=== PATIENT | female | born 2000 | race Two or more races ===

== ENCOUNTER 2021-01-18 10:52 | Emergency (ER) | payer SELFPAY ==
--- NOTE | 2021-01-18 11:08 | EDM.PDOC ---
ED HPI GENERAL MEDICAL PROBLEM - General Chief Complaint: Abdominal Pain Stated Complaint: VOMITTING,DIARRHEA,ABDOMINAL PAIN Time Seen by Provider: 01/18/21 11:02 Source of Information: Reports: Patient History Limitations: Reports: No Limitations - History of Present Illness INITIAL COMMENTS - FREE TEXT/NARRATIVE: HISTORY AND PHYSICAL: History of present illness: Patient is a 27-year-old Albanian-speaking female that presents with complaints of headache, sore throat, nausea vomiting, diarrhea, congestion, chills, dysuria, generalized abdominal pain and a subjective fever for the past 7 days. All information obtained via security installer tablet. The patient states that she has been unable to eat very well and has been taking Tylenol and Motrin for her discomfort. The patient states that she has never had this previously. She does not appreciate any modifiers. The patient states she generally feels bad. She has pain throughout her entire body. Patient denies any change in vision, syncope or near syncope. Denies any chest pain, back pain, or shortness of breath. Has not noted any blood in urine or stool. Patient has been eating and drinking appropriately. The patient has never had a COVID-19, or been tested for COVID-19. The patient has not been vaccinated for COVID-19. The patient is unemployed and is unsure of exposure to COVID-19. The patient states that she does not employ any social or preventative practices such as mask wearing. Review of systems: As per history of present illness and below otherwise all systems reviewed and negative. Past medical history: As per history of present illness and as reviewed below otherwise noncontributory. Surgical history: As per history of present illness and as reviewed below otherwise noncontribut ory. Social history: See social history for further information Family history: As per history of present illness and as reviewed below otherwise noncontributory. Physical exam: General: Well developed and well nourished. Alert and orientated x 3. Nontoxic in appearance and in no acute distress. Vital signs are stable and have been reviewed by me. Nursing notes were reviewed. HEENT: Atraumatic, normocephalic, pupils equal and reactive bilaterally, negative for conjunctival pallor or scleral icterus, mucous membranes moist, TMs normal bilaterally, throat clear, neck supple, nontender, trachea midline. Left posterior #17 tooth gingiva edematous and swollen. No drooling or trismus noted. No meningeal signs. No hot potato voice noted. Lungs: Clear to auscultation bilaterally. No wheezes, rales, or rhonchi. Chest nontender. Normal work of breathing, no accessory muscles used. Heart: S1S2, regular rate and rhythm without overt murmur, gallops, or rubs. No JVD. No peripheral edema Abdomen: Soft, nondistended, generalized tenderness. Normoactive bowel sounds. Negative for masses or costovertebral tenderness. Skin: Intact, warm, dry. No lesions or rashes noted. Hematologic: No petechiae or purpra. Mucosa appropriate color and normal nail bed color and refill. Extremities: Atraumatic, moves all extremities per self without difficulty or deficits, negative for cords or calf pain. Neurovascular unremarkable. Neuro: Awake, alert, oriented. Cranial nerves II through XII unremarkable. Cerebellum unremarkable. Motor and sensory unremarkable throughout. Exam nonfocal. Psychiatric: Mood and affect are appropriate. Normal thought process. Answering questions appropriately. Notes: *This patient was seen and evaluated during the 2019 SARS-CoV-2 novel coronavirus pandemic period. Community viral transmission is ongoing at time of this encounter and the emergency department is operating under pandemic response procedures. As stated above the patient is a 20-year-old female who presents to the emergency room with complaints of headache, sore throat, nausea vomiting, diarrhea, congestion, chills, dysuria, generalized abdominal pain and a subjective fever for the past 7 days. industrial chemicals supervisor tablet was utilized for all information obtained, exam, and plan of treatment. The patient's exam is benign except for some generalized abdominal tenderness. As the patient is unsure of her COVID-19 status I will obtain a COVID-19 swab. I will order blood work, and a chest x-ray. A urinalysis is ordered due to dysuria. I will treat the patient with IV fluids and her nausea with Zofran 4 mg IV. I will treat her discomfort with Toradol 30 mg IV. The patient is agreeable with this plan. The patient CBC is unremarkable. The patient's CMP is remarkable for a calcium of six 8.4, AST 41, and ALT 74. The patient's urinalysis was unremarkable. The patient's Covid 19 swab is positive. As the patient's BMI is 34.5 she qualifies for REGEN-COV. I provided the patient with a Albanian copy of the patient's, parents, caregivers REGEN-COV fax sheet and she consented to the infusion. The information has been faxed to the outpatient clinic and they will call her with a infusion time. The patient is agreeable with this discharge plan. I have reviewed Covid symptomatic treatment with the patient. I have given her detailed instructions on when to return to the clinic. I will also prescribe clindamycin 300 mg every 8 hours for 7 days for her dental caries. This was all accomplished with a industrial chemicals supervisor tablet. I have talked with the patient about today's findings, in addition to providing specific details for plan of care. Reassessment at the time of disposition demonstrates that the patient is in no acute distress. The patient is stable for discharge, counseling was provided and we discussed in great detail signs and symptoms that would prompt them to return to the Emergency Department. Medication, follow up and supportive care measures were reviewed and discussed. Voices understanding and is agreeable to plan of care. Denies any further questions or concerns at this time. Diagnostics: CBC, CMP, CXR, COVID-19 swab, urinalysis Therapeutics: Fluids, Toradol 30 mg IV, Zofran 4 mg IV Prescription:REGEN-COV infusion, mitomycin 300 mg every 8 hours x7 days for dental Impression: COVID-19, Dental caries Plan: 1. You were evaluated today on an emergent basis. Your plaints of headache, sore throat, nausea, vomiting, diarrhea, congestion, chills, and full urination were evaluated with blood work which was essentially normal, a chest x-ray which was normal, and a COVID-19 swab which was positive for Covid. Using the industrial chemicals supervisor we reviewed the criteria for REGEN-COV. You received a [place]ian copy of the patient fax sheet and gave your consent. The clinic will be calling you for an appointment. 2. Your COVID-19 screening is positive. That means you do have the coronavirus and you are considered contagious. Your vital signs and oxygen saturation are well enough that you were able to monitor your symptoms at home. Continue to monitor for trouble breathing, new confusion or inability to arouse, bluish lips or face or any of the other symptoms we discussed -if this occurs please return to the emergency room. 3. Please self quarantine until cleared by [facility]. Inform any persons that you have been in contact with since you started becoming symptomatic that you have tested positive; they should be made aware and take the appropriate steps as needed. 4. You can take NyQuil during the evening to help get a restful night sleep. May alternate Tylenol and ibuprofen as needed for pain and fever management. 5. The the [facility] department will be calling you and following up with you. The [place] [facility] [employer] Hotline phone number , They are open Wednesday - Wednesday 7am - 7pm. Follow up with your primary care provider for re-evaluation and re-testing after the 10 day quarantine and discuss when you should be seen. Definitive disposition and diagnosis as appropriate pending reevaluation and review of above. abdomen Pain Score (Numeric/FACES): 7 - Related Data Allergies Allergy/AdvReac Type Severity Reaction Status Date / Time Penicillins Allergy Airway Verified 01/18/21 11:10 Tightness Home Meds: Home Meds Clindamycin HCl 300 mg PO Q8HR 7 Days #21 capsule 01/18/21 [Rx] ED ROS GENERAL - Review of Systems Review Of Systems: Comprehensive ROS is negative, except as noted in HPI. ED EXAM, GI/ABD - Physical Exam Exam: See Below (See dictation) Course - Vital Signs Last Recorded V/S: Last Vital Signs Temp 97.1 F 01/18/21 11:04 Pulse 65 01/18/21 14:22 Resp 18 01/18/21 14:22 BP 116/83 01/18/21 14:30 Pulse Ox 99 01/18/21 14:22 - Orders/Labs/Meds Labs: Laboratory Tests 01/18/21 01/18/21 01/18/21 Range/Units 11:33 11:33 11:33 WBC 4.93 (4.0-11.0) K/uL RBC 5.09 (4.30-5.90) M/uL Hgb 14.7 (12.0-16.0) g/dL Hct 43.0 (36.0-46.0) % MCV 84.5 (80.0-98.0) fL MCH 28.9 (27.0-32.0) pg MCHC 34.2 (31.0-37.0) g/dL RDW Std Deviation 41.2 (28.0-62.0) fl RDW Coeff of Zac 13 (11.0-15.0) % Plt Count 201 (150-400) K/uL MPV 11.70 (7.40-12.00) fL Neut % (Auto) 37.2 L (48.0-80.0) % Lymph % (Auto) 52.1 H (16.0-40.0) % [place] % (Auto) 10.5 (0.0-15.0) % Eos % (Auto) 0.0 (0.0-7.0) % Baso % (Auto) 0.2 (0.0-1.5) % Neut # (Auto) 1.8 (1.4-5.7) K/uL Lymph # (Auto) 2.6 H (0.6-2.4) K/uL [place] # (Auto) 0.5 (0.0-0.8) K/uL Eos # (Auto) 0.0 (0.0-0.7) K/uL Baso # (Auto) 0.0 (0.0-0.1) K/uL Nucleated RBC % 0.0 /100WBC Nucleated RBCs # 0 K/uL Sodium 139 (136-145) mmol/L Potassium 3.8 (3.5-5.1) mmol/L Chloride 102 (98-107) mmol/L Carbon Dioxide 25.1 (21.0-32.0) mmol/L BUN 7 (7.0-18.0) mg/dL Creatinine 0.8 (0.6-1.0) mg/dL Est Cr Clr Drug Dosing 103.26 mL/min Estimated GFR (MDRD) > 60.0 ml/min Glucose 85 (74-106) mg/dL Calcium 8.4 L (8.5-10.1) mg/dL Total Bilirubin 0.5 (0.2-1.0) mg/dL AST 41 H (15-37) IU/L ALT 74 H (14-63) IU/L Alkaline Phosphatase 71 (46-116) U/L Total Protein 7.6 (6.4-8.2) g/dL Albumin 3.9 (3.4-5.0) g/dL Globulin 3.7 (2.6-4.0) g/dL Albumin/Globulin Ratio 1.1 (0.9-1.6) Urine Color Urine Appearance Urine pH (5.0-8.0) Ur Specific [place] (1.001-1.035) Urine Protein (NEGATIVE) mg/dL Urine Glucose (UA) (NEGATIVE) mg/dL Urine Ketones (NEGATIVE) mg/dL Urine Occult Blood (NEGATIVE) Urine Nitrite (NEGATIVE) Urine Bilirubin (NEGATIVE) Urine Ictotest Urine Urobilinogen (<2.0) EU/dL Ur Leukocyte Esterase (NEGATIVE) SARS-CoV-2 RNA (GORGE) POSITIVE H (NEGATIVE) 01/18/21 Range/Units 13:26 WBC (4.0-11.0) K/uL RBC (4.30-5.90) M/uL Hgb (12.0-16.0) g/dL Hct (36.0-46.0) % MCV (80.0-98.0) fL MCH (27.0-32.0) pg MCHC (31.0-37.0) g/dL RDW Std Deviation (28.0-62.0) fl RDW Coeff of Zac (11.0-15.0) % Plt Count (150-400) K/uL MPV (7.40-12.00) fL Neut % (Auto) (48.0-80.0) % Lymph % (Auto) (16.0-40.0) % [place] % (Auto) (0.0-15.0) % Eos % (Auto) (0.0-7.0) % Baso % (Auto) (0.0-1.5) % Neut # (Auto) (1.4-5.7) K/uL Lymph # (Auto) (0.6-2.4) K/uL [place] # (Auto) (0.0-0.8) K/uL Eos # (Auto) (0.0-0.7) K/uL Baso # (Auto) (0.0-0.1) K/uL Nucleated RBC % /100WBC Nucleated RBCs # K/uL Sodium (136-145) mmol/L Potassium (3.5-5.1) mmol/L Chloride (98-107) mmol/L Carbon Dioxide (21.0-32.0) mmol/L BUN (7.0-18.0) mg/dL Creatinine (0.6-1.0) mg/dL Est Cr Clr Drug Dosing mL/min Estimated GFR (MDRD) ml/min Glucose (74-106) mg/dL Calcium (8.5-10.1) mg/dL Total Bilirubin (0.2-1.0) mg/dL AST (15-37) IU/L ALT (14-63) IU/L Alkaline Phosphatase (46-116) U/L Total Protein (6.4-8.2) g/dL Albumin (3.4-5.0) g/dL Globulin (2.6-4.0) g/dL Albumin/Globulin Ratio (0.9-1.6) Urine Color YELLOW Urine Appearance SLT CLOUDY Urine pH 6.0 (5.0-8.0) Ur Specific [place] 1.025 (1.001-1.035) Urine Protein NEGATIVE (NEGATIVE) mg/dL Urine Glucose (UA) NEGATIVE (NEGATIVE) mg/dL Urine Ketones 40 H (NEGATIVE) mg/dL Urine Occult Blood NEGATIVE (NEGATIVE) Urine Nitrite NEGATIVE (NEGATIVE) Urine Bilirubin SMALL H (NEGATIVE) Urine Ictotest NEGATIVE Urine Urobilinogen 1.0 (<2.0) EU/dL Ur Leukocyte Esterase NEGATIVE (NEGATIVE) SARS-CoV-2 RNA (GORGE) (NEGATIVE) Meds: Medications Discontinued Medications Generic Name Dose Route Start Last Admin Trade Name Freq PRN Reason Stop Dose Admin Sodium Chloride 1,000 mls @ 999 mls/hr 01/18/21 11:25 01/18/21 11:34 Normal Saline IV 01/18/21 12:25 999 mls/hr .BOLUS ONE Administration Ketorolac Tromethamine 30 mg 01/18/21 11:25 01/18/21 11:35 Ketorolac 30 Mg/Ml Sdv IVPUSH 01/18/21 11:26 30 mg ONETIME ONE Administration Ondansetron HCl 4 mg 01/18/21 11:25 01/18/21 11:35 Ondansetron 4 Mg/2 Ml Sdv IVPUSH 01/18/21 11:26 4 mg ONETIME ONE Administration Sodium Chloride 10 ml 01/18/21 11:23 01/18/21 11:35 Sodium Chloride 0.9% 10 Ml Syringe FLUSH 10 ml ASDIRECTED PRN Administration Keep Vein Open Sodium Chloride 2.5 ml 01/18/21 11:23 01/18/21 11:35 Sodium Chloride 0.9% 2.5 Ml Syringe FLUSH 2.5 ml ASDIRECTED PRN Administration Keep Vein Open Departure - Departure Time of Disposition: 14:16 Disposition: Home, Self-Care 01 Condition: Good Clinical Impression: COVID-19, Dental infection - Discharge Information *PRESCRIPTION DRUG MONITORING PROGRAM REVIEWED*: Not Applicable *COPY OF PRESCRIPTION DRUG MONITORING REPORT IN PATIENT RAZA: Not Applicable Prescriptions: Clindamycin HCl 300 mg PO Q8HR 7 Days #21 capsule Instructions: COVID-19 Vaccine Information, Dental Abscess, [id number] Referrals: PCP,None [Primary Care Provider] - Forms: ED Department Discharge Additional Instructions: Plan: 1. Usted fue evaluado hoy de forma emergente. Rosmery quejas de dolor de krystyna, dolor de garganta, nuseas, vmitos, diarrea, congestin, escalofros y miccin completa se evaluaron con anlisis de eufemia que ethan esencialmente normales, harry radiografa de trax que era normal y un hisopo de COVID-19 que era positivo para COVID-19. Utilizando el intrprete de espaol, revisamos los criterios para REGEN-COV. Recibi harry copia en espaol de la hoja de fax del paciente y des james consentimiento. La clnica lo llamar para programar harry joseline. 2. James prueba de COVID-19 es positiva. Eso significa que tiene el coronavirus y se le considera contagioso. Rosmery signos vitales y la saturacin de oxgeno estn lo suficientemente kim brianna para poder controlar rosmery sntomas en casa. Contine monitoreando si tiene problemas para respirar, nueva confusin o incapacidad para despertarse, labios o chula azulados o cualquiera de los otros sntomas que discutimos; si esto ocurre, regrese a la sherwin de emergencias. 3. Por favor, pngase en cuarentena hasta que lo apruebe el Departamento de [place] del Estado. Informe a todas las personas con las que sultana estado en contacto desde que comenz a tener sntomas de que sultana dado positivo en la prueba; deben ser informados y elis las medidas adecuadas segn sea necesario. 4. Puede elis NyQuil mallory la noche para ayudarlo a tener un sueo reparador. Puede alternar Tylenol e ibuprofeno segn sea necesario para controlar el dolor y la fiebre. 5. El departamento de zoie del estado lo llamar y se pondr en contacto con alpa. La lnea directa de [place] [facility], nmero de telfono , est abierta de lunes a viernes de 7 a. M. A 7 p. M. Katerina un seguimiento con james proveedor de atencin primaria para harry reevaluacin y harry nueva prueba despus de la cuarentena de 10 olivarez y discuta cundo debe ser atendido. La siguiente informacin se proporciona a los pacientes atendidos en el departamento de emergencias que estn siendo dados de goldie a james hogar. Esta informacin es para describir rosmery opciones para la atencin de seguimiento. Proporcionamos a todos los pacientes atendidos en nuestro departamento de emergencias harry derivacin de seguimiento. La necesidad de seguimiento, as brianna el momento y las circunstancias, varan segn los detalles de james visita al departamento de emergencias. Si no tiene un mdico de atencin primaria en el personal, le proporcionaremos harry referencia. Siempre le recomendamos que se ponga en contacto con james mdico personal despus de harry visita al servicio de urgencias para informarle de las circunstancias de la visita y para hacer un seguimiento con l y / o la necesidad de cualquier derivacin a un especialista consultor. El departamento de emergencias tambin lo derivar a un especialista cuando sea apropiado. Esta remisin le asegura que tiene la oportunidad de recibir atencin de seguimiento con un especialista. Todas estas medidas se brendan en un esfuerzo por brindarle harry atencin ptima, que incluye james seguimiento. En todas las circunstancias, siempre lo alentamos a que se comunique con james mdico privado, quien sigue siendo un recurso para coordinar james atencin. Cuando llame para recibir atencin de seguimiento, informe al consultorio que suzanne seguimiento es de james visita reciente a la sherwin de emergencias. Si por alguna razn se le niega el seguimiento, comunquese con el Departamento de Emergencias del [facility] al y solicite hablar con la enfermera a cargo del departamento de emergencias. [facility] [address] [place] [id number] [facility] [address] [place] [id number] The following information is given to patients seen in the emergency department who are being discharged to home. This information is to outline your options for follow-up care. We provide all patients seen in our emergency department with a follow-up referral. The need for follow-up, as well as the timing and circumstances, are variable depending upon the specifics of your emergency department visit. If you don't have a primary care physician on staff, we will provide you with a referral. We always advise you to contact your personal physician following an emergency department visit to inform them of the circumstance of the visit and for follow-up with them and/or the need for any referrals to a consulting specialist. The emergency department will also refer you to a specialist when appropriate. This referral assures that you have the opportunity for follow-up care with a specialist. All of these measure are taken in an effort to provide you with optimal care, which includes your follow-up. Under all circumstances we always encourage you to contact your private physician who remains a resource for coordinating your care. When calling for follow-up care, please make the office aware that this follow-up is from your recent emergency room visit. If for any reason you are refused follow-up, please contact the [facility] Emergency Department at and asked to speak to the emergency department charge nurse. [facility] [address] [place] [id number] [id number] Plan: 1. You were evaluated today on an emergent basis. Your plaints of headache, sore throat, nausea, vomiting, diarrhea, congestion, chills, and full urination were evaluated with blood work which was essentially normal, a chest x-ray which was normal, and a COVID-19 swab which was positive for Covid. Using the industrial chemicals supervisor we reviewed the criteria for REGEN-COV. You received a [place] copy of the patient fax sheet and gave your consent. The clinic will be calling you for an appointment. 2. Your COVID-19 screening is positive. That means you do have the coronavirus and you are considered contagious. Your vital signs and oxygen saturation are well enough that you were able to monitor your symptoms at home. Continue to monitor for trouble breathing, new confusion or inability to arouse, bluish lips or face or any of the other symptoms we discussed -if this occurs please return to the emergency room. 3. Please self quarantine until cleared by [facility] Department. Inform any persons that you have been in contact with since you started becoming symptomatic that you have tested positive; they should be made aware and take the appropriate steps as needed. 4. You can take NyQuil during the evening to help get a restful night sleep. May alternate Tylenol and ibuprofen as needed for pain and fever management. 5. The [facility] department will be calling you and following up with you. The [place] [facility] Hotline phone number , They are open Wednesday - Wednesday 7am - 7pm. Follow up with your primary care provider for re-evaluation and re-testing after the 10 day quarantine and discuss when you should be seen.
[2021-01-18] MEDS ORDERED: Sodium Chloride 0.9% 2.5 ML Syringe FLUSH PRN (11:23)
[2021-01-18] MEDS ORDERED: Sodium Chloride 0.9% 10 ML Syringe FLUSH PRN (11:23)
[2021-01-18] MEDS ORDERED: Ondansetron 4 MG/2 ML SDV IVPUSH ONE (11:25)
[2021-01-18] MEDS ORDERED: Sodium Chloride 0.9% 1,000 ML IV ONE (11:25)
[2021-01-18] MEDS ORDERED: Ketorolac 30 MG/ML SDV IVPUSH ONE (11:25)
[2021-01-18 12:08] LABS: BLOOD UREA NITROGEN,BUN 7 mg/dL (7.0-18.0); CARBON DIOXIDE,CO2 25.1 mmol/L (21.0-32.0); CHLORIDE,CL 102 mmol/L (98-107); GLUCOSE RANDOM 85 mg/dL (74-106); POTASSIUM,K 3.8 mmol/L (3.5-5.1); SODIUM,NA 139 mmol/L (136-145)
--- NOTE | 2021-01-18 13:53 | CR ---
HISTORY: Cough, shortness of breath and fever. TECHNIQUE: Two views of the chest. COMPARISON: No prior. FINDINGS: There is no acute lung infiltrate or pulmonary edema. No pneumothorax or pleural effusion. Cardiac size and pulmonary vasculature are within normal limits. No acute bony abnormality. IMPRESSION: No acute disease. Dictated by Kenyon Watkins MD @ 01/18/2021 1:52:22 PM (Electronically Signed)
== END 2021-01-18 14:30 | disposition home or self-care (01) ==
LOC: MW.ED 10:52
DX: U07.1 COVID-19 (principal); K04.7 Periapical abscess without sinus; K02.9 Dental caries, unspecified; Z88.0 Allergy status to penicillin
CPT/HCPCS: 36415; 71046; 80053; 81003; 85025; 87635; 96374; 96375; 99284; J1885; J2405; J7030; U0002